=== PATIENT | male | born 1960 | race Caucasian/White ===

== ENCOUNTER 2018-08-19 14:31 | Day surgery (SDC) | payer BC ==
[~2018-08-19] VITALS: Ht 182.9 cm; Wt 97.7 kg
[2018-08-19] MEDS ORDERED: NS 1,000 ML IV ONE (15:15)
[2018-08-19] MEDS ORDERED: AMLO5TAB6 PO (15:36)
[2018-08-19] MEDS ORDERED: LISI40TA PO (15:36)
[2018-08-19] MEDS ORDERED: TAMS1CAP17 PO (15:36)
[2018-08-19] MEDS ORDERED: SPIR100T3 PO (15:36)
[2018-08-19] MEDS ORDERED: SAW160CA PO (15:48)
[2018-08-19] MEDS ORDERED: ATOR1TAB19 PO (15:48)
[2018-08-19] MEDS ORDERED: [UNRECOGNIZED DRUG - OTHER] PO (15:48)
[2018-08-19] MEDS ORDERED: VALA500T5 PO (15:48)
[2018-08-19] MEDS ORDERED: ZOSY3INJ2 IV (15:48)
[2018-08-19] MEDS ORDERED: BUPIVACAINE/EPIN 0.25% 30 ML VIAL As Ordered ONE (15:53)
[2018-08-19] MEDS ORDERED: MORPHINE 4 MG/ML 1ML VIAL/SYRINGE (J2270) IV PRN ×3 (16:00→20:45)
[2018-08-19] MEDS ORDERED: MORPHINE 2 MG/ML 1ML SYRINGE (J2270) As Ordered ONE (16:12)
[2018-08-19] MEDS ORDERED: dexameTHASONE 4 MG/ML 1ML VIAL (J1100) As Ordered ONE (18:23)
[2018-08-19] MEDS ORDERED: PROPOFOL 200 MG/20 ML VIAL As Ordered ONE ×2 (18:23→19:32)
[2018-08-19] MEDS ORDERED: LIDOCAINE 2% INJ 100 MG/5 ML SDV (FOR ANES.) As Ordered ONE (18:23)
[2018-08-19] MEDS ORDERED: ONDANSETRON 4MG/2ML VIAL (J2405) As Ordered ONE (18:23)
[2018-08-19] MEDS ORDERED: ROCURONIUM BROMIDE 50 MG/5 ML VIAL As Ordered ONE (18:23)
[2018-08-19] MEDS ORDERED: MIDAZOLAM INJ 2 MG/2 ML VIAL (J2250) As Ordered ONE (18:25)
[2018-08-19] MEDS ORDERED: fentaNYL 100 MCG/2 ML INJECTION (J3010) As Ordered ONE (18:25)
[2018-08-19] MEDS ORDERED: KETOROLAC 60 MG/2 ML VIAL (J1885) As Ordered ONE (18:28)
[2018-08-19] MEDS ORDERED: ZOSYN 3.375 GM VIAL (J2543) As Ordered ONE (18:37)
[2018-08-19] MEDS ORDERED: VASOPRESSIN INJ 20 UNITS/ML VIAL As Ordered ONE (19:36)
[2018-08-19] MEDS ORDERED: ACETAMINOPHEN 1000MG 100ML IV BTL (OFIRMEV) (J0131 PER 10MG) As Ordered ONE (19:40)
[2018-08-19] MEDS ORDERED: PHENYLephrine HCL 500 MCG/5 ML (100MCG/ML) SYRINGE (J2370) As Ordered ONE ×2 (19:40→19:49)
[2018-08-19] MEDS ORDERED: HYDROmorphone HCL 2 MG/ML 1ML VIAL (J1170) As Ordered ONE (19:42)
[2018-08-19] MEDS ORDERED: SUGAMMADEX SODIUM 500 MG/5 ML VIAL (BRIDION) As Ordered ONE (19:48)
[2018-08-19] MEDS ORDERED: NORCO, ANEXSIA 5/325MG TABLET (HYDROcodone/ACETAMINOPHEN) PO PRN (20:45)
[2018-08-19] MEDS ORDERED: ONDANSETRON 4MG/2ML VIAL (J2405) IV PRN ×2 (20:45)
[2018-08-19] MEDS ORDERED: PERCOCET 5MG/325MG TAB PO PRN (20:45)
[2018-08-19] MEDS ORDERED: KETOROLAC 30 MG/ML VIAL (J1885) IV PRN (20:45)
[2018-08-19] MEDS ORDERED: fentaNYL 100 MCG/2 ML INJECTION (J3010) IV PRN (20:45)
[2018-08-19] MEDS ORDERED: METOCLOPRAMIDE INJ 10MG/2ML VIAL (J2765) IV PRN (20:45)
[2018-08-19] MEDS ORDERED: LR 1,000 ML IV SCH (20:45)
[2018-08-19 21:00] VITALS: BP 134/62
--- NOTE | 2018-08-19 21:25 | HPE ---
DATE OF ADMISSION: 08/19/2018 CHIEF COMPLAINT: Abdominal pain, acute appendicitis. HISTORY OF PRESENT ILLNESS: This is a 58-year-old male who was transferred from [facility] for acute appendicitis. He states that he has been having nausea for about a month with dry heaves but no emesis. He started feeling sick and dizzy yesterday. This morning around 3:30 a.m. he started having right lower quadrant abdominal pain, which has only gotten worse. He describes it as sharp and stabbing in nature. It does not radiate anywhere. However, his abdomen is diffusely tender as well. He denies any diarrhea, fevers, chills, shortness of breath or palpitations. He states his only abdominal surgery was a left hernia repair in [place] over 5 years ago. He has not had any bright red blood per rectum, melena, or hematemesis. REVIEW OF SYSTEMS: Constitutional: Denies any weight changes, fevers or chills. HEENT: Denies any headaches, visual changes, changes to hearing, sore throat, runny nose or odynophagia. Cardiovascular: Denies any palpitations, chest pain, orthopnea, edema or paroxysmal nocturnal dyspnea. Respiratory: Denies any shortness of breath, cough, sputum production, wheezes or hemoptysis. Gastrointestinal: Positive for abdominal pain as described above as well as nausea. Denies emesis, hematemesis, hematochezia, melena, tenesmus or obstipation. Genitourinary: Positive for difficulty urinating and a history of urethral stricture. Denies any polyuria, hematuria or incontinence. Musculoskeletal: Denies any joint swelling, muscle aches or pains. Hematologic: Denies any easy bruising or bleeding, petechiae, purpura. Lymphatic: Denies any new lumps or bumps anywhere. Neurologic: Denies any numbness or tingling, changes to smell, vision, taste or hearing, history of seizures or motor deficits. Psych: Denies any anxiety, depression, anhedonia, paranoia or episodes of anna. PAST MEDICAL HISTORY: Hypertension. Hyperlipidemia. History of urethral stricture. Herpes simplex virus (HSV). HOME MEDICATIONS: - amlodipine 5 mg by mouth daily - atorvastatin 10 mg by mouth daily - lisinopril 40 mg by mouth daily - Lysine 500 mg by mouth daily - Saw Sprague 160 mg by mouth daily - spirolactone 100 mg by mouth daily - Flomax 0.4 mg by mouth daily - valacyclovir 500 mg by mouth daily PAST SURGICAL HISTORY: Left hernia repair in [place] over 5 years ago. Surgery for urethral stricture. Right knee surgery. Parathyroidectomy. Skin graft. ALLERGIES: None. FAMILY HISTORY: Noncontributory. SOCIAL HISTORY: The patient denies smoking cigarettes, tobacco use, alcohol, or drug use. PHYSICAL EXAMINATION: Temperature 98.3 degrees, pulse is 70 and regular, respiratory rate 16, blood pressure 160/60, pulse oximetry is 97% on room air. General: The patient is visibly uncomfortable lying on the stretcher. His position of comfort is with his hips flexed on his right side. HEENT: Mucous membranes are moist. Head is atraumatic, normocephalic. Extraocular eye movements are intact. Neck: Supple, no masses. Respiratory: Clear to auscultation bilaterally. No wheezes, rhonchi or rales. Heart: Regular rate and rhythm. No murmurs, gallops or rubs. Abdomen: Positive bowel sounds. Belly is soft, and there is diffuse tenderness to palpation. He does have some pain upon flexion of the hips with guarding and rebound tenderness. Extremities: No lower extremity edema bilaterally. The patient has good pulses. CT of the abdomen and pelvis from [facility] was reviewed and shows inflammation of the appendix with periappendiceal stranding suggestive of appendicitis. IMPRESSION/PLAN: This is a 58-year-old male with an acute appendicitis. Plan is to go to the operating room (OR) for a laparoscopic appendectomy. He will be admitted under the service of Dr. Phani Stanford DO. Preoperative antibiotic will be Zosyn 3.375 mg IV.
[2018-08-19 21:30] VITALS: BP 111/57
[2018-08-19] MEDS: SENOKOT S TAB PO SCH (21:44)
[2018-08-19] MEDS: KCL 20MEQ IN D5/0.45NS 1000ML 1,000 ML IV SCH (21:45)
[2018-08-19 22:00] VITALS: BP 94/54
[2018-08-19] MEDS ORDERED: SODIUM CHLORIDE 0.9% 1000ML IV ONE (22:45)
[2018-08-20] VITALS (7 sets, daily range): BP systolic 125–138; BP diastolic 58–68
[2018-08-20] MEDS: PIPERACILLIN/TAZOBACTAM SOD 3.375 GM in D5W MINI-BAG PLUS 50 ML IV SCH ×5 (01:08→23:50)
[2018-08-20] MEDS: ACETAMINOPHEN TAB 650MG DOSE (2X325MG) PO PRN ×4 (03:58→22:29)
[2018-08-20 06:02] LABS: HEMATOCRIT 33.3 % (42.0-52.0); HEMOGLOBIN 11.4 g/dl (13.5-17.5); MEAN CORPUSCULAR HEMOGLOBIN 33.9 pg (27.0-33.0); MEAN CORPUSCULAR HGB CONC 34.2 g/dl (32.0-36.5); MEAN CORPUSCULAR VOLUME 99.1 fl (80.0-96.0); PLATELET COUNT, AUTOMATED 209 10^3/uL (150-450); RED BLOOD COUNT 3.36 10^6/uL (4.30-6.10); WHITE BLOOD COUNT 18.8 10^3/uL (4.0-10.0)
[2018-08-20 06:24] LABS: CALCIUM LEVEL 10.8 MG/DL (8.5-10.1); CREATININE FOR GFR 1.48 MG/DL (0.70-1.30); GLOMERULAR FILTRATION RATE 51.8 (>56); POTASSIUM SERUM 4.6 MEQ/L (3.5-5.1)
[2018-08-20] MEDS: KCL 20MEQ IN D5/0.45NS 1000ML 1,000 ML IV SCH (07:20)
[2018-08-20] MEDS: SPIRONOLACTONE 50 MG TAB PO SCH (08:23)
[2018-08-20] MEDS: TAMSULOSIN 0.4 MG CAP PO SCH (08:24)
[2018-08-20] MEDS: SENOKOT S TAB PO SCH ×2 (08:24→20:35)
[2018-08-20] MEDS: valACYclovir HCL 500 MG TAB PO SCH (08:24)
[2018-08-20] MEDS: ATORVASTATIN 10 MG TAB PO SCH (08:24)
[2018-08-20] MEDS: PANTOPRAZOLE 40MG TAB (PROTONIX) PO SCH (08:24)
[2018-08-20] MEDS: ENOXAPARIN 40 MG/0.4 ML SYRINGE (J1650) SC SCH (08:25)
[2018-08-20] MEDS: amLODIPine 5 MG TAB PO SCH (09:06)
[2018-08-20] MEDS: LISINOPRIL 40 MG TAB PO SCH (09:07)
--- NOTE | 2018-08-20 21:58 | IPNPDOC ---
Text Note Date of Service The patient was seen on 08/20/18. NOTE No acute events overnight. He is tolerating diet. Denies nausea, emesis, fevers, pains, or BMs. VSSAF NAD abd - soft, nt, nd, incisions c/d/i, drain in place with serous output labs - below A) 58y/o male s/p lap perforated appy P) reg diet ambulate ok to shower PO pain control abx plan on dc in am if labs improve Hung Stanford DO A-FIB/CHADSVASC A-FIB History Current/History of A-Fib/PAF?: No VS,Fishbone, I+O VS, Fishbone, I+O Laboratory Tests 08/20/18 05:28 Red Blood Count 3.36 L, Mean Corpuscular Volume 99.1 H, Mean Corpuscular Hemoglobin 33.9 H, Mean Corpuscular Hemoglobin Concent 34.2, Red Cell Distribution Width 12.0, Calcium Level 10.8 H Vital Signs Date Time Temp Pulse Resp B/P (MAP) Pulse Ox O2 Delivery O2 Flow Rate FiO2 08/20/18 14:00 98.2 76 18 131/61 (84) 97 08/19/18 17:04 Room Air I&O- Last 24 Hours up to 6 AM 08/20/18 06:00 Intake Total 2880 ml Output Total 675 ml Balance 2205 ml ARMANDO STANFORD DO Aug 20, 2018 21:58
[2018-08-21 02:00] VITALS: BP 108/54
[2018-08-21 06:00] VITALS: BP 130/63
[2018-08-21 06:03] LABS: HEMATOCRIT 35.1 % (42.0-52.0); HEMOGLOBIN 11.7 g/dl (13.5-17.5); MEAN CORPUSCULAR HEMOGLOBIN 33.2 pg (27.0-33.0); MEAN CORPUSCULAR HGB CONC 33.3 g/dl (32.0-36.5); MEAN CORPUSCULAR VOLUME 99.7 fl (80.0-96.0); PLATELET COUNT, AUTOMATED 234 10^3/uL (150-450); RED BLOOD COUNT 3.52 10^6/uL (4.30-6.10); WHITE BLOOD COUNT 16.5 10^3/uL (4.0-10.0)
[2018-08-21 06:25] LABS: CALCIUM LEVEL 11.1 MG/DL (8.5-10.1); CREATININE FOR GFR 1.35 MG/DL (0.70-1.30); GLOMERULAR FILTRATION RATE 57.6 (>56); POTASSIUM SERUM 4.3 MEQ/L (3.5-5.1)
[2018-08-21] MEDS: PIPERACILLIN/TAZOBACTAM SOD 3.375 GM in D5W MINI-BAG PLUS 50 ML IV SCH ×2 (06:49→12:12)
[2018-08-21] MEDS ORDERED: MOM 30ML SUSPENSION UDC PO ONE (08:00)
[2018-08-21] MEDS ORDERED: BISACODYL 10 MG SUPP PR ONE (08:00)
[2018-08-21] MEDS: TAMSULOSIN 0.4 MG CAP PO SCH (08:19)
[2018-08-21] MEDS: ENOXAPARIN 40 MG/0.4 ML SYRINGE (J1650) SC SCH (08:19)
[2018-08-21] MEDS: LISINOPRIL 40 MG TAB PO SCH (08:20)
[2018-08-21] MEDS: valACYclovir HCL 500 MG TAB PO SCH (08:20)
[2018-08-21] MEDS: SENOKOT S TAB PO SCH (08:20)
[2018-08-21] MEDS: SPIRONOLACTONE 50 MG TAB PO SCH (08:20)
[2018-08-21 08:21] VITALS: BP 132/60
[2018-08-21] MEDS: ATORVASTATIN 10 MG TAB PO SCH (08:21)
[2018-08-21] MEDS: PANTOPRAZOLE 40MG TAB (PROTONIX) PO SCH (08:21)
[2018-08-21] MEDS: amLODIPine 5 MG TAB PO SCH (08:21)
[2018-08-21] MEDS ORDERED: AUGM875T28 PO (08:37)
[2018-08-21] MEDS ORDERED: HYDR-4571 PO (08:37)
--- NOTE | 2018-08-21 08:45 | IPNPDOC ---
Text Note Date of Service The patient was seen on 08/21/18. NOTE No acute events overnight. He is tolerating diet. Denies nausea, emesis, fevers, or BM. He feels bloated and constipated this am. No other complaints. VSSAF NAD abd - soft, nt, alightly distended, incisions c/d/i, drain in place with serous output labs - below wbc - 18.8>16.5 A) 58y/o male s/p lap perforated appy P) reg diet ambulate ok to shower PO pain control abx plan on d/c after a BM if he feels better Hung Stanford DO A-FIB/CHADSVASC A-FIB History Current/History of A-Fib/PAF?: No VS,Fishbone, I+O VS, Fishbone, I+O Laboratory Tests 08/21/18 05:32 Red Blood Count 3.52 L, Mean Corpuscular Volume 99.7 H, Mean Corpuscular Hemoglobin 33.2 H, Mean Corpuscular Hemoglobin Concent 33.3, Red Cell Distribution Width 12.1, Calcium Level 11.1 H Vital Signs Date Time Temp Pulse Resp B/P (MAP) Pulse Ox O2 Delivery O2 Flow Rate FiO2 08/21/18 08:21 68 132/60 08/21/18 06:00 98.2 18 98 08/19/18 17:04 Room Air I&O- Last 24 Hours up to 6 AM 08/21/18 06:00 Intake Total 1910 ml Output Total 2955 ml Balance -1045 ml ARMANDO STANFORD DO Aug 21, 2018 08:45
[2018-08-21] MEDS ORDERED: FLEET ENEMA PR PRN (09:15)
--- NOTE | 2018-08-21 10:46 | REP ---
ABDOMEN, TWO VIEWS: HISTORY: Abdominal pain. A small amount of air is present in small and large intestine. There is mild distention of the colon. Several air fluid levels are present in the colon . There is no pneumoperitoneum. A mild amount of stool is present in the colon. IMPRESSION: Nonspecific bowel gas pattern. Electronically Signed by Rich Keane MD 08/21/2018 10:55 A
[2018-08-21] MEDS ORDERED: SIMETHICONE 80 MG CHEW TAB PO ONE (11:00)
--- NOTE | 2018-08-23 09:42 | RO ---
DATE OF PROCEDURE: 08/19/2018 PREOPERATIVE DIAGNOSIS: Acute appendicitis. POSTOPERATIVE DIAGNOSIS: Acute perforated appendicitis. PROCEDURE: Laparoscopic appendectomy and drain placement. SURGEON: Dr. Stanford VAT TENDER: None. ANESTHESIA: General. ESTIMATED BLOOD LOSS: 5. COMPLICATIONS: None. INDICATIONS FOR PROCEDURE: The patient is a 58-year-old male who presents with lower quadrant abdominal pain for about a day, found to have acute appendicitis on CT. Recommendation was to proceed with laparoscopic, possible open appendectomy. Risks and benefits of the procedure not limited but including bleeding, infection, hernia formation, damage to surrounding structures, need for further surgery were discussed in detail with the patient. Informed consent was obtained and procedure was planned. DESCRIPTION OF PROCEDURE: The patient brought back to operating room #8. After sufficient sedation, the abdomen was sterilely prepped and draped. Time-out was done to confirm proper patient and proper procedure. Following that a 5 mm incision was made in the left lower quadrant, Veress needle was inserted and the abdomen was insufflated 50 mmHg. Veress needle was removed. A 5 mm Optiview port was used to gain access to the abdomen. Once the abdomen was entered, a 5 mm port was placed suprapubically in the midline, another 8 mm port supraumbilically in midline. The abdomen was then examined. Multiple adhesions along the right abdominal wall. Could not identify the cecum at first. Starting taking out adhesions in the right upper abdominal wall working my way inferiorly. However, it appeared to be making slow progress, so I grabbed the small bowel and traced it back until I found the terminal ileum, which was plastered down in the right lower quadrant. I was then able to elevate that superiorly and found the appendix inferior to that way down in the pelvis. I was then able to elevate that up in the air. The appendix split in half, drained a little bit of stool and a small amount of pus. The rest the appendix was then dissected free using the Enseal until the base was reached. Once the base was reached, two PDS Endoloops were placed around it and the appendix was amputated using Enseal. Both pieces of the appendix were brought out through a 5 mm Endo Catch bag. I aspirated all the contents that leaked down the right lower quadrant, placed a 19-Romansh Laron against the bed where the appendix had been lying, brought it out through the suprapubic port site, sutured in place with #2-0 silk suture. Then, I brought the specimen out through the supraumbilical port site, deflated the abdomen, closed the skin incision with #4-0 Vicryl subcuticular sutures. The abdomen was then cleaned and dried. Steri-Strips, 4 x 4, and tape were applied, thus ending procedure.
== END 2018-08-21 13:25 | disposition home or self-care (01) ==
LOC: M ED 14:31 → M SDC 15:10 → M MSPAV 17:12 → M SDC 08-21 13:25
PROVIDERS: ATTEND Surgery
DX: K35.32 Acute appendicitis with perforation, localized peritonitis, and gangrene, without abscess (principal); I10 Essential (primary) hypertension; E78.49 Other hyperlipidemia; Z79.899 Other long term (current) drug therapy
CPT/HCPCS: 36415; 44970; 74019; 80048; 85027; 88302; 96361; 96372; 96374; 96375; 96376; 99284; J0131; J1100; J1170; J1650; J1885; J2250; J2270; J2370; J2405; J2543; J3010

== ENCOUNTER → 2019-09-04 | Outpatient (REF) | payer BC ==
[~2019-09-04] MED LIST: AMLO5TAB6 PO; ATOR1TAB19 PO; AUGM875T28 PO; HYDR-4571 PO; L-LY500T14 PO; LISI40TA PO; SAW160CA PO; SPIR100T3 PO; TAMS1CAP17 PO; VALA500T5 PO; ZOSY3INJ2 IV
[2019-09-04 11:47] LABS: IONIZED CALCIUM 5.5 MG/DL (4.5-5.3)
[2019-09-04 12:18] LABS: ALT/SGPT 27 U/L (12-78); BILIRUBIN,TOTAL 0.4 MG/DL (0.2-1.0); BLOOD UREA NITROGEN 21 MG/DL (7-18); CALCIUM LEVEL 9.8 MG/DL (8.8-10.2); CARBON DIOXIDE LEVEL 27 MEQ/L (21-32); CHLORIDE LEVEL 106 MEQ/L (98-107); CREATININE FOR GFR 1.04 MG/DL (0.70-1.30); FREE T4 0.79 NG/DL (0.76-1.46); GLOMERULAR FILTRATION RATE > 60.0 (>49); GLUCOSE, FASTING 97 MG/DL (70-100); POTASSIUM SERUM 4.6 MEQ/L (3.5-5.1); SODIUM LEVEL 138 MEQ/L (136-145); TOTAL PROTEIN 7.1 GM/DL (6.4-8.2)
== END ==
LOC: M LABDRAWC 11:38
PROVIDERS: ATTEND Internal Medicine Endocrinology, Diabetes & Metabolism
DX: E21.0 Primary hyperparathyroidism (principal); E83.52 Hypercalcemia; E06.3 Autoimmune thyroiditis

== ENCOUNTER → 2019-09-04 | Outpatient (REF) | payer BC ==
[2019-09-04 11:56] LABS: BASO # 0.1 10^3/uL (0.0-0.2); BASO % 0.9 % (0.0-1.0); EOS # 0.2 10^3/uL (0.0-0.5); EOS % 3.2 % (0.0-3.0); HEMATOCRIT 44.1 % (42.0-52.0); HEMOGLOBIN 14.8 g/dl (13.5-17.5); LYMPH # 1.5 10^3/uL (1.5-5.0); LYMPH % 23.5 % (24.0-44.0); MEAN CORPUSCULAR HEMOGLOBIN 32.1 pg (27.0-33.0); MEAN CORPUSCULAR HGB CONC 33.6 g/dl (32.0-36.5); MEAN CORPUSCULAR VOLUME 95.7 fl (80.0-96.0); MONO # 0.6 10^3/uL (0.0-0.8); MONO % 9.7 % (0.0-5.0); NEUTROPHILS # 4.1 10^3/uL (1.5-8.5); NEUTROPHILS % 62.4 % (36.0-66.0); PLATELET COUNT, AUTOMATED 213 10^3/uL (150-450); RED BLOOD COUNT 4.61 10^6/uL (4.30-6.10); WHITE BLOOD COUNT 6.5 10^3/uL (4.0-10.0)
[2019-09-04 12:32] LABS: ALBUMIN 3.9 GM/DL (3.2-5.2); ALT/SGPT 28 U/L (12-78); BILIRUBIN,TOTAL 0.4 MG/DL (0.2-1.0); BLOOD UREA NITROGEN 22 MG/DL (7-18); CARBON DIOXIDE LEVEL 26 MEQ/L (21-32); CHLORIDE LEVEL 108 MEQ/L (98-107); CHOLESTEROL LEVEL 183 MG/DL (<200); CHOLESTEROL RISK RATIO 3.452 (<5); CREATININE FOR GFR 1.03 MG/DL (0.70-1.30); GLOMERULAR FILTRATION RATE > 60.0 (>49); GLUCOSE, FASTING 101 MG/DL (70-100); HDL CHOLESTEROL 53 MG/DL (>40); LDL CHOLESTEROL 105 MG/DL (<100); NON-HDL-C 130 MG/DL; POTASSIUM SERUM 4.6 MEQ/L (3.5-5.1); SODIUM LEVEL 139 MEQ/L (136-145); TRIGLYCERIDES LEVEL 126 MG/DL (<150)
== END ==
LOC: M LABDRAWC 11:34
PROVIDERS: ATTEND Family Medicine
DX: E78.5 Hyperlipidemia, unspecified (principal); Z12.5 Encounter for screening for malignant neoplasm of prostate; R35.0 Frequency of micturition; I12.9 Hypertensive chronic kidney disease with stage 1 through stage 4 chronic kidney disease, or unspecified chronic kidney disease
CPT/HCPCS: 36415; 80053; 80061; 85025; G0103

== ENCOUNTER → 2019-12-21 | Outpatient (REF) | payer BC ==
[~2019-12-21] MED LIST changes: +AMLO1TAB24 PO; -AMLO5TAB6 PO
[2019-12-22 14:19] LABS: HEMATOCRIT 41.4 % (42.0-52.0); HEMOGLOBIN 14.1 g/dl (13.5-17.5); MEAN CORPUSCULAR HEMOGLOBIN 32.9 pg (27.0-33.0); MEAN CORPUSCULAR HGB CONC 34.1 g/dl (32.0-36.5); MEAN CORPUSCULAR VOLUME 96.7 fl (80.0-96.0); PLATELET COUNT, AUTOMATED 214 10^3/uL (150-450); RED BLOOD COUNT 4.28 10^6/uL (4.30-6.10); WHITE BLOOD COUNT 7.4 10^3/uL (4.0-10.0)
[2019-12-22 14:41] LABS: BLOOD UREA NITROGEN 21 MG/DL (7-18); CALCIUM LEVEL 11.2 MG/DL (8.8-10.2); CARBON DIOXIDE LEVEL 25 MEQ/L (21-32); CHLORIDE LEVEL 106 MEQ/L (98-107); CREATININE FOR GFR 1.18 MG/DL (0.70-1.30); GLOMERULAR FILTRATION RATE > 60.0 (>49); GLUCOSE, FASTING 93 MG/DL (70-100); POTASSIUM SERUM 4.3 MEQ/L (3.5-5.1); SODIUM LEVEL 137 MEQ/L (136-145); URIC ACID 7.2 MG/DL (3.5-7.2)
[2019-12-22 14:52] LABS: PTH INTACT 221.9 PG/ML (18.5-88.0)
== END ==
LOC: M LABDRAWC 14:35
PROVIDERS: ATTEND Internal Medicine Nephrology
DX: I12.9 Hypertensive chronic kidney disease with stage 1 through stage 4 chronic kidney disease, or unspecified chronic kidney disease (principal); N18.3 Chronic kidney disease, stage 3 (moderate); E83.52 Hypercalcemia

== ENCOUNTER → 2020-01-19 | Outpatient (REF) | payer BC ==
[2020-01-19 12:33] LABS: IONIZED CALCIUM 5.3 MG/DL (4.5-5.3)
[2020-01-19 13:14] LABS: ALBUMIN 3.8 GM/DL (3.2-5.2); ALT/SGPT 23 U/L (12-78); BILIRUBIN,TOTAL 0.6 MG/DL (0.2-1.0); BLOOD UREA NITROGEN 21 MG/DL (7-18); CARBON DIOXIDE LEVEL 28 MEQ/L (21-32); CHLORIDE LEVEL 109 MEQ/L (98-107); CREATININE FOR GFR 1.17 MG/DL (0.70-1.30); FREE T4 0.82 NG/DL (0.76-1.46); GLOMERULAR FILTRATION RATE > 60.0 (>49); GLUCOSE, FASTING 111 MG/DL (70-100); POTASSIUM SERUM 4.4 MEQ/L (3.5-5.1); SODIUM LEVEL 139 MEQ/L (136-145); TOTAL PROTEIN 7.1 GM/DL (6.4-8.2)
== END ==
LOC: M LABDRAWC 12:18
PROVIDERS: ATTEND Internal Medicine Endocrinology, Diabetes & Metabolism
DX: E06.3 Autoimmune thyroiditis (principal)